=== PATIENT | female | born 1965 | race African-American/Black ===

== ENCOUNTER 2016-07-21 14:29 | Outpatient (CLI) | payer OTHER ==
--- NOTE | 2016-07-21 16:07 | Mammography Report ---
BILATERAL DIGITAL SCREENING MAMMOGRAM with CAD : 07/21/16 14:29:00 CLINICAL: Routine screening. COMPARISON:None available. FINDINGS: The breasts are heterogeneously dense, which may obscure small masses in the breasts are sufficiently dense to limit the sensitivity of mammography.Bilateral benign calcifications. No mass, architectural distortion or suspicious calcifications. IMPRESSION: No mammographic evidence of malignancy. BI-RADS CATEGORY: 2 -- Benign RECOMMENDATION: Routine mammographic screening in one year. COMMENT: Patient follow-up letters are generated by our [employer] application.
== END 2016-07-21 14:30 | disposition home or self-care (01) ==
LOC: SPVWC 14:29
PROVIDERS: ATTEND Internal Medicine
DX: Z12.31 Encounter for screening mammogram for malignant neoplasm of breast (principal)
CPT/HCPCS: 77067; G0202